=== PATIENT | female | born 1940 | race Caucasian/White ===

== ENCOUNTER 2023-02-19 15:56 | Outpatient (CLI) | payer MEDICARE, BC | END 2023-02-19 15:57 | disposition home or self-care (01) | LOC: CSHER/OP 15:56 → CSHRAD 15:56 → CSHER/OP 15:57 | PROVIDERS: ATTEND Nurse Practitioner Family | DX: S46.021A Laceration of muscle(s) and tendon(s) of the rotator cuff of right shoulder, initial encounter (principal) ==